=== PATIENT | female | born 1975 ===

== ENCOUNTER 2016-09-19 19:29 | Emergency (ER) | payer OTHER ==
--- NOTE | 2016-09-19 20:05 | ED MVC/FALL/TRAUMA COMPLAINT ---
History of Present Illness General Chief Complaint: Fall Stated Complaint: PT FELL DOWNS A FLIGHT OF STAIRS Source: patient, family Exam Limitations: no limitations Vital Signs & Intake/Output Vital Signs & Intake/Output Vital Signs Date Time Temp Pulse Resp B/P B/P Pulse O2 O2 Flow FiO2 Mean Ox Delivery Rate 09/19 2101 97.2 76 19 110/68 100 Room Air 09/19 1933 83 20 116/74 98 Room Air ED Intake and Output 09/20 0000 09/19 1200 Intake Total Output Total Balance Patient 62.142 kg Weight Allergies Coded Allergies: No Known Allergies (09/19/16) Reconcile Medications Ibuprofen 400 MG TABLET 1 TAB PO Q6P PRN PAIN Oxycodone HCl/Acetaminophen (Percocet 5-325 MG Tablet) 5 MG-325 MG TABLET 1 TAB PO BID PRN COCCYX PAIN Triage Note: PER PT FELL DOWN 20 STEPS NO HEAD STRIKE NO LOC CO BACK PAIN AND BUTT PPAIN Triage Nurses Notes Reviewed? yes : No Patient currently breastfeeds: No HPI: 41F NO PMH FELL DOWN A FLIGHT OF STAIRS. SLIPPED AT THE TOP OF THE STAIRS, LANDED ON HER BUTT, AND SLID DOWN THE STAIRS ON HER BUTT AND BACK. NO HEAD INJURY, DID NOT LOSE CONSCIOUSNESS. WAS ABLE TO WALK AFTERWARD BUT NOW HAVING COCCYX PAIN THAT IS BECOMING MORE SEVERE AND LIMITING HER AMBULATION. NO NEUROLOGICAL DYSFUNCTION, DENYING INCONTINENCE, WEAKNEESS, NUMBNESS, PARESTHESIA. Past History Travel History Traveled to [place] past 21 day No Medical History Any Pertinent Medical History? see below for history Neurological: NONE EENT: NONE Cardiovascular: NONE Respiratory: NONE Gastrointestinal: NONE Hepatic: NONE Renal: NONE Musculoskeletal: NONE Psychiatric: NONE Endocrine: NONE Surgical History Surgical History: non-contributory Psychosocial History What is your primary language Ma[place] Tobacco Use: Current Daily Use Daily Tobacco Use Amount/Type: => 5 Cigarettes daily Family History Hx Contributory? No Review of Systems Review of Systems Constitutional: Reports: no symptoms. Eyes: Reports: no symptoms. Ears, Nose, Throat, Mouth: Reports: no symptoms. Respiratory: Reports: no symptoms. Cardiovascular: Reports: no symptoms. Gastrointestinal/Abdominal: Reports: no symptoms. Genitourinary: Reports: no symptoms. Musculoskeletal: Reports: see HPI. Skin: Reports: no symptoms. Neurological/Psychological: Reports: no symptoms. All Other Systems: Reviewed and Negative Physical Exam Physical Exam General Appearance: well developed/nourished, no apparent distress, mild distress Head: atraumatic, normal appearance Eyes: Bilateral: normal appearance. Ears, Nose, Throat, Mouth: moist mucous membrane Neck: normal inspection, supple, full range of motion, normal alignment Respiratory: no respiratory distress Cardiovascular: regular rate/rhythm Gastrointestinal: soft, non-tender Back: TENDERNESS OVER COCCYX, OTHERWISE NO VERTEBRAL OR PARAVERTEBRAL TENDERNESS. NO PELVIC OR HIP TENDERNESS Extremities: normal range of motion, evidence of injury Core Measures ACS in differential dx? No Severe Sepsis Present: No Septic Shock Present: No Progress Differential Diagnosis: aoritic dissection, abd injury, C/T/L spine injury, ext injury, ICH, pelvis injury, pnemothorax, spinal cord injury Plan of Care: Orders Procedure Date/time Status XRY-SACRUM AND COCCYX 09/20 1955 Active XRY-LUMBAR SPINE ONE VIEW 09/20 1955 Active WILL OBTAIN X-RAYS OF LUMBAR SPINE, SACRUM, AND COCCYX. TORADOL FOR PAIN NO FRACTURES NOTED. PATIENT WILL BE DISCHARGED HOME ON MOTRIN, PERCOCET, REST, ICE, PCP FOLLOW UP. (BLADIMIR MATA,SURAJ) Diagnostic Imaging: Viewed by Me: Radiology Read. Discussed w/RAD: Radiology Read. Radiology Impression: PATIENT: NIESHA MAGANA PRESENT AGE: 41 PATIENT ACCOUNT NO: [id number] : 73 LOCATION: [facility] ORDERING PHYSICIAN: SURAJ GARRISON MD SERVICE DATE: 09/19/16-1955 EXAM TYPE : RAD - XRY-LUMBAR SPINE ONE VIEW; XRY-SACRUM AND COCCYX EXAMINATION: SACRUM AND COCCYX. LUMBOSACRAL SPINE. CLINICAL INFORMATION: Fell down a flight of stairs. COMPARISON: None TECHNIQUE: Lumbar spine one view. Sacrum and coccyx 3 views. FINDINGS: SACRUM AND COCCYX: There is no visible acute fracture or dislocation. Visualized sacrum and coccyx appears unremarkable. LUMBAR SPINE: The vertebral heights, alignment and disc heights are normal. No visible acute fracture or dislocation. There is normal symmetry of SI joints. IMPRESSION: No visible fracture or dislocation of lumbar spine. No visible fracture sacral or coccyx. Departure Departure Time of Disposition: 2053 Disposition: HOME OR SELF CARE Condition: Stable Clinical Impression Primary Impression: Coccyx contusion Secondary Impressions: Fall down stairs, Sacral pain Referrals: JEROMY MATA,ARIAN Young (PCP/Family) Departure Forms: Customer Survey General Discharge Information RELEASE- WORK for 3 days. May Return to Work today: No (Including today's visit) Prescriptions: Current Visit Scripts Oxycodone HCl/Acetaminophen (Percocet 5-325 MG Tablet) 1 TAB PO BID PRN COCCYX PAIN #10 TAB Ibuprofen 1 TAB PO Q6P PRN PAIN #20 TAB
--- NOTE | 2016-09-19 20:43 | RADIOLOGY REPORT ---
EXAMINATION: SACRUM AND COCCYX. LUMBOSACRAL SPINE. CLINICAL INFORMATION: Fell down a flight of stairs. COMPARISON: None TECHNIQUE: Lumbar spine one view. Sacrum and coccyx 3 views. FINDINGS: SACRUM AND COCCYX: There is no visible acute fracture or dislocation. Visualized sacrum and coccyx appears unremarkable. LUMBAR SPINE: The vertebral heights, alignment and disc heights are normal. No visible acute fracture or dislocation. There is normal symmetry of SI joints. IMPRESSION: No visible fracture or dislocation of lumbar spine. No visible fracture sacral or coccyx.
[2016-09-19] MEDS ORDERED: IBUPROFEN400 M1 PO (20:56)
[2016-09-19] MEDS ORDERED: PERCOCET 5-3251 EACH PO (20:56)
[2016-09-19 21:01] VITALS: BP 110/68
== END 2016-09-19 21:19 ==
LOC: ERH 19:29
DX: S30.0XXA Contusion of lower back and pelvis, initial encounter (principal); W10.9XXA Fall (on) (from) unspecified stairs and steps, initial encounter; Y92.9 Unspecified place or not applicable; Y93.9 Activity, unspecified
CPT/HCPCS: 72020; 72220; 96372; J1885